=== PATIENT | female | born 1960 | race American Indian/Alaskan Native ===

== ENCOUNTER 2016-10-23 09:40 | Emergency (ER) | payer OTHER ==
[2016-10-23] MEDS ORDERED: TORADOL IM ONE (11:27)
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
[2016-10-23 12:14] VITALS: BP 132/92
== END 2016-10-23 12:20 | disposition home or self-care (01) ==
LOC: ED 09:40
DX: S39.012A Strain of muscle, fascia and tendon of lower back, initial encounter (principal); I10 Essential (primary) hypertension; Z88.0 Allergy status to penicillin; V89.2XXA Person injured in unspecified motor-vehicle accident, traffic, initial encounter; Y93.89 Activity, other specified; Y92.89 Other specified places as the place of occurrence of the external cause; Y99.8 Other external cause status
CPT/HCPCS: 96372; 99282; J1885

== ENCOUNTER 2018-09-19 10:23 | Emergency (ER) | payer SELFPAY ==
[2018-09-19 10:30] VITALS: BP 130/92
[2018-09-19] MEDS ORDERED: FLEXERIL PO ONE (11:18)
[2018-09-19] MEDS ORDERED: TORADOL IM ONE (11:18)
[2018-09-19] MEDS ORDERED: DELTASONE PO ONE (11:18)
--- NOTE | 2018-09-19 11:24 | Emergency Department Report ---
ED Upper Extremity Inj HPI - General Chief Complaint: Extremity Injury, Upper Stated Complaint: LT ARM PAIN Time Seen by Provider: 09/19/18 10:35 Source: patient Mode of arrival: Ambulatory Limitations: No Limitations - History of Present Illness Initial Comments: This is a 58-year-old female nontoxic, well nourished in appearance, no acute signs of distress presents to the ED with c/o of left deltoid muscle and bicep pain 2 days. Patient stated that she was lifting a pack of water bottles in the store and started to have pains. Patient denies any trauma. Patient denies any numbness, tingling, fever, chills, nausea, vomiting, chest pain, shortness of breath, headache, stiff neck. Patient denies any joint swelling or joint redness. Patient stated has some decreased range of motion due to pain. Patient stated allergies to aspirin has been taking motrin/aleve with no allergies. Denies any significant past medical history. MD Complaint: Injury to:: left, shoulder, arm -: days(s) (2) Other Extremity Injury: Arm: Left, Shoulder: Left Other Injuries: none Place: other Severity scale (0 -10): 8 Improves With: immobilization Worsens With: movement of extremity Associated Symptoms: denies other symptoms. denies: weakness, numbness, neck pain, suspects foreign body, nausea/vomiting, heard/felt popping sensat - Related Data Previous Rx's Medication Instructions Recorded Last Taken Type Lisinopril/Hydrochlorothiazide 1 tab PO QDAY #60 tablet 08/01/13 Unknown Rx [Zestoretic 20-12.5 mg] Cyclobenzaprine [Flexeril] 10 mg PO TID PRN #30 tablet 10/23/16 Unknown Rx Naproxen [Naprosyn TAB] 500 mg PO BID PRN #60 tablet 10/23/16 Unknown Rx Cyclobenzaprine [Flexeril] 10 mg PO QHS PRN 10 Days tablet 09/19/18 Unknown Rx Naproxen [Naprosyn TAB] 500 mg PO BID PRN #20 tablet 09/19/18 Unknown Rx Allergies Allergy/AdvReac Type Severity Reaction Status Date / Time aspirin Allergy Hives Verified 09/19/18 10:28 ED Review of Systems ROS: Stated complaint: LT ARM PAIN Other details as noted in HPI Constitutional: denies: chills, fever Eyes: denies: eye pain, eye discharge, vision change ENT: denies: ear pain, throat pain Respiratory: denies: cough, shortness of breath, wheezing Cardiovascular: denies: chest pain, palpitations Endocrine: no symptoms reported Gastrointestinal: denies: abdominal pain, nausea, diarrhea Genitourinary: denies: urgency, dysuria, discharge Musculoskeletal: arthralgia. denies: back pain, joint swelling Skin: denies: rash, lesions Neurological: denies: headache, weakness, paresthesias Psychiatric: denies: anxiety, depression Hematological/Lymphatic: denies: easy bleeding, easy bruising ED Past Medical Hx - Past Medical History Hx Hypertension: Yes - Surgical History Additional Surgical History: kidney donation - Social History Smoking Status: Never Smoker Substance Use Type: None - Medications Home Medications: Home Medications Medication Instructions Recorded Confirmed Last Taken Type Lisinopril/Hydrochlorothiazide 1 tab PO QDAY #60 tablet 08/01/13 Unknown Rx [Zestoretic 20-12.5 mg] Cyclobenzaprine [Flexeril] 10 mg PO TID PRN #30 tablet 10/23/16 Unknown Rx Naproxen [Naprosyn TAB] 500 mg PO BID PRN #60 tablet 10/23/16 Unknown Rx Cyclobenzaprine [Flexeril] 10 mg PO QHS PRN 10 Days tablet 09/19/18 Unknown Rx Naproxen [Naprosyn TAB] 500 mg PO BID PRN #20 tablet 09/19/18 Unknown Rx ED Physical Exam - General Limitations: No Limitations General appearance: alert, in no apparent distress - Head Head exam: Present: atraumatic, normocephalic - Neck Neck exam: Present: normal inspection, full ROM. Absent: tenderness, meningismus, lymphadenopathy - Extremities Exam Extremities exam: Present: normal inspection, full ROM, tenderness, normal capillary refill. Absent: joint swelling - Expanded Upper Extremity Exam Left General: Present: normal inspection Shoulder Exam: Present: normal inspection, full ROM, tenderness. Absent: swelling, abrasion, laceration, ecchymosis, deformity, crepidus, dislocation, erythema, tenderness over AC joint Upper Arm exam: Present: normal inspection, full ROM, tenderness. Absent: swelling, abrasion, laceration, ecchymosis, deformity, crepidus, dislocation, erythema Elbow exam: Present: normal inspection, full ROM. Absent: tenderness, swelling Forearm Wrist exam: Present: normal inspection, full ROM. Absent: tenderness, swelling Hand Wrist exam: Present: normal inspection, full ROM. Absent: tenderness, swelling Vascular: Present: vascular compromise, normal capillary refill - Back Exam Back exam: Present: normal inspection, full ROM. Absent: tenderness, CVA ten derness (R), CVA tenderness (L), muscle spasm, paraspinal tenderness, vertebral tenderness, rash noted - Neurological Exam Neurological exam: Present: alert, oriented X3, normal gait - Psychiatric Psychiatric exam: Present: normal affect, normal mood - Skin Skin exam: Present: warm, dry, intact, normal color. Absent: rash ED Course Vital Signs 09/19/18 10:28 Temperature 97.8 F Pulse Rate 72 Respiratory 16 Rate Blood Pressure 130/92 O2 Sat by Pulse 98 Oximetry - Reevaluation(s) Reevaluation #1: 09/19/18 11:22 Patient is speaking in full sentences with no signs of distress noted. ED Medical Decision Making - Medical Decision Making This is a 58-year-old female that presents with left deltoid and bicep muscle strain. Patient is stable and was examined by me. I referred patient to an orthopedic doctor for further evaluation for possible MRI. No ecchymosis. no joint redness or swelling. Not warm to touch. No signs of cellulites present. Patient was instructed to apply warm compressors to the area for muscle strain. Patient received Toradol, Prednisone, and Flexeril for pain which stated that symptoms are resolving and feels better. She stated that her will drive her home after discharge to possible drowsiness of Flexeril. Patient is discharged with naproxen and Flexeril. At time of discharge, the patient does not seem toxic or ill in appearance. No acute signs of distress noted. Patient agrees to discharge treatment plan of care. No further questions noted by the patient. Critical care attestation.: If time is entered above; I have spent that time in minutes in the direct care of this critically ill patient, excluding procedure time. ED Disposition Clinical Impression: Strain of left deltoid muscle Qualifiers: Encounter type: initial encounter Qualified Code(s): S46.812A - Strain of other muscles, fascia and tendons at shoulder and upper arm level, left arm, initial encounter Strain of left biceps muscle Qualifiers: Encounter type: initial encounter Qualified Code(s): S46.212A - Strain of muscle, fascia and tendon of other parts of biceps, left arm, initial encounter Disposition: TO HOME OR SELFCARE Is pt being admited?: No Does the pt Need Aspirin: No Condition: Stable Instructions: Muscle Strain (ED), Cyclobenzaprine (By mouth) Additional Instructions: Follow-up with a orthopedic doctor in 3-5 days or if symptoms worsen and continue return to emergency room as soon as possible. Take Naproxen and Flexeril as prescribed. Do not operate heavy machinery while taking Flexeril due to sedation Prescriptions: Cyclobenzaprine [Flexeril] 10 mg PO QHS PRN 10 Days tablet PRN Reason: Muscle Spasm Naproxen [Naprosyn TAB] 500 mg PO BID PRN #20 tablet PRN Reason: Pain, Moderate (4-6) Referrals: PRIMARY CAREMD [Referring] - 3-5 Days SOFI WESTON MD [Staff Physician] - 3-5 Days [facility] [Outside] - 3-5 Days [facility] [Outside] - 3-5 Days Forms: Work/School Release Form(ED)
== END 2018-09-19 12:25 | disposition home or self-care (01) ==
LOC: ED 10:23
DX: S46.812A Strain of other muscles, fascia and tendons at shoulder and upper arm level, left arm, initial encounter (principal); S46.212A Strain of muscle, fascia and tendon of other parts of biceps, left arm, initial encounter; I10 Essential (primary) hypertension; Z88.6 Allergy status to analgesic agent; X58.XXXA Exposure to other specified factors, initial encounter; Y93.89 Activity, other specified; Y92.89 Other specified places as the place of occurrence of the external cause; Y99.8 Other external cause status
CPT/HCPCS: 96372; 99282; J1885; J7512